=== PATIENT | female | born 1995 ===

== ENCOUNTER 2023-12-15 00:54 | Day surgery (SDC) | payer OTHER, SELFPAY ==
[2023-12-15 07:17] VITALS: BP 110/54; PULSE 62; RESP 18; TEMP 36.6; O2SAT 100
[2023-12-15] MEDS: LACTATED RINGERS 1,000 ML 150 ML IV CONT (07:35)
--- NOTE | 2023-12-15 08:16 | P.PNAN_ITS ---
Anes - Initial Pre Proc Eval Procedure: Operation Date: 12/15/23 09:00 Proposed Procedures p Esophagogastroduodenoscopy - John Castellanos MD Date/Time: 12/15/23 08:16 Surgeon: John Castellanos MD Pre Op Diagnosis: GERD without esophagitis, iron deficiency anemia Patient Data Age: 28 Gender: F Height: 1.7 m Weight: 125.4 kg Last Vital Signs Temp 97.9 F 12/15/23 07:17 Pulse 62 12/15/23 07:17 Resp 18 12/15/23 07:17 BP 110/54 L 12/15/23 07:17 Pulse Ox 100 12/15/23 07:17 O2 Del Method Room Air 12/15/23 07:17 Allergies Allergy/AdvReac Type Severity Reaction Status Date / Time No Known Allergies Allergy Verified 12/15/23 07:16 Home Medications Medication Instructions Recorded Confirmed Type ferrous sulfate 325 mg (65 mg 325 mg PO DAILY 12/01/23 12/01/23 History iron) tablet Patient hx anesthesia problems: none Family hx anesthesia problems: none Results Review: All pre-operative results and documents have been reviewed as part of the pre- operative evaluation. PMFSH Social History Social History Living arrangements: incarcerated Anes - Eval Final PreProcedure Day of Procedure 12/15/23 08:16 Patient weight: morbidly obese Heart: regular rate and rhythm Lungs: clear to auscultation Airway: Mallampati scale class II Neurological: alert and oriented Last oral intake: >/= 8 hours ASA classification: III Emergent: no Anesthetic plan: proceed Anesthesia type and monitoring: general GIVS and standard monitoring Results Review: All pre-operative results and documents have been reviewed as part of the pre- operative evaluation. Informed Consent: The patient's anesthetic plan and its attendant risks and benefits were discussed with the patient/family/POA. Questions were solicited and answers provided to the satisfaction of the patient/family/POA.
--- NOTE | 2023-12-15 09:01 | PM.HPGS ---
History of Present Illness History of Present Illness Consent: Risks, benefits, and alternatives have been discussed and questions answered. Patient agrees to proceed with procedure. Chief complaint: GERD without esophagitis, iron deficiency anemia Narrative: Mendy Ortiz is a 28 year old female here for first egd, she is a prisoner. History of gerd using omeprazole that helps sometimes, also found to have some anemia. Review of Systems Review of Systems: All systems reviewed & are unremarkable except as noted in HPI and below PMFSH Past Medical History Medical History (Updated 12/15/23 @ 09:04 by John Castellanos MD) GERD (gastroesophageal reflux disease) Social History Social History Living arrangements: incarcerated Meds Home Medications and Allergies Home Medications Medication Instructions Recorded Confirmed Type ferrous sulfate 325 mg (65 mg 325 mg PO DAILY 12/01/23 12/01/23 History iron) tablet Allergies Allergy/AdvReac Type Severity Reaction Status Date / Time No Known Allergies Allergy Verified 12/15/23 07:16 Vital Signs Vital Signs - 24 hr 12/15/23 07:17 Temperature 97.9 F Pulse Rate 62 Respiratory Rate 18 Blood Pressure 110/54 L Pulse Oximetry 100 Oxygen Delivery Room Air Exam Const: General: comfortable and no acute distress HENMT: Face/Nose/Sinus: Normal nares present Eyes: General: appearance normal, both eyes and all related structures Neck: Neck: no JVD Resp: Auscultation: clear to auscultation bilaterally Cardio: Rate: regular rate Rhythm: regular rhythm GI: Inspection: non-distended GI Palp: Yes Soft to palpation Skin: General skin exam: normal color Neuro: General: gait normal Speech: normal speech Extrem: General: normal to inspection Psych: Mental Status: mental status grossly normal Assessment and Plan Assessment and plan (1) GERD (gastroesophageal reflux disease): Code(s): K21.9 - Gastro-esophageal reflux disease without esophagitis Status: Acute Assessment and Plan: egd with bx on omeprazole otc
[2023-12-15 09:16] VITALS: BP 97/58; PULSE 81; RESP 16; O2SAT 97
[2023-12-15 09:26] VITALS: BP 97/61; PULSE 74; RESP 15; O2SAT 98
[2023-12-15 09:36] VITALS: BP 105/56; PULSE 75; RESP 20; O2SAT 100
[2023-12-15 17:04] LABS: BEDSIDEPREGUCG Negative
== END 2023-12-15 09:44 | disposition home or self-care (01) ==
PROVIDERS: Visit Provider Internal Medicine Gastroenterology
PROC: 0DJ08ZZ Inspection of Upper Intestinal Tract, Via Natural or Artificial Opening Endoscopic (ICD-10-PCS; CPT 43235; principal; 2023-12-15 09:00)
DX: K21.9 Gastro-esophageal reflux disease without esophagitis (principal); D50.9 Iron deficiency anemia, unspecified; E66.01 Morbid (severe) obesity due to excess calories; Z68.41 Body mass index [BMI] 40.0-44.9, adult
CPT/HCPCS: 43239; 88305; J2704; J7120